=== PATIENT | female | born 1925 | race Caucasian/White ===

== ENCOUNTER 2016-08-06 06:04 | Day surgery (SDC) | payer MEDICARE, OTHER ==
[~2016-08-06 06:04] MED LIST: AMARYL2 PO; LEVOTHYROXIN88 MCG PO; PREDNISOLONE OPH; SYMBICORT 160/41 INH INH; TOPROL XL200 MG PO; ZETIA PO; ZOCOR20 PO
[2016-08-06 06:57] LABS: HEMATOCRIT 41.1 % (36.0-48.0); HEMOGLOBIN 13.5 g/dL (12.0-16.0)
[2016-08-06 07:09] LABS: BUN (BLOOD UREA NITROGEN) 22 MG/DL (6-23); CALCIUM, SERUM 9.2 MG/DL (8.5-10.4); CHLORIDE, SERUM 99 MMOL/L (96-112); CO2 (CARBON DIOXIDE) 33 MMOL/L (24-34); CREATININE 1.43 MG/DL (0.55-1.02); GFR AFRICAN AMERICAN 38 ML/MIN (>=60); GFR NON AFRICAN AMERICAN 32 ML/MIN (>=60); GLUCOSE, SERUM 199 MG/DL (60-99); POTASSIUM, SERUM 3.9 MMOL/L (3.5-5.3); SODIUM, SERUM 141 MMOL/L (135-148)
== END 2016-08-06 12:38 | disposition home or self-care (01) ==
LOC: SDC 06:04
PROVIDERS: Ophthalmology
PROC: 08R9XKZ Replacement of Left Cornea with Nonautologous Tissue Substitute, External Approach (ICD-10-PCS; principal; 2016-08-06 08:30)
DX: H18.51 Endothelial corneal dystrophy (principal); E11.22 Type 2 diabetes mellitus with diabetic chronic kidney disease; I13.0 Hypertensive heart and chronic kidney disease with heart failure and stage 1 through stage 4 chronic kidney disease, or unspecified chronic kidney disease; N18.9 Chronic kidney disease, unspecified; I50.9 Heart failure, unspecified; K21.9 Gastro-esophageal reflux disease without esophagitis; Z79.899 Other long term (current) drug therapy; Z96.1 Presence of intraocular lens; Z98.41 Cataract extraction status, right eye; Z98.42 Cataract extraction status, left eye; Z96.643 Presence of artificial hip joint, bilateral
CPT/HCPCS: 80048; 82962; 85014; 85018; 87070; 87102; 87205; 93005; J0690; J2405; V2785